=== PATIENT | male | born 1965 | race Asian ===

== ENCOUNTER 2019-07-07 16:41 | Emergency (ER) | payer BC ==
[~2019-07-07] VITALS: Ht 170.2 cm; Wt 77.1 kg
[2019-07-07 16:41] VITALS: BP_SYST 127
[2019-07-07] MEDS ORDERED: DIPH-TET-PERTUS Vaccine 0.5 ML VIAL (ADACEL) I.M. ONE (17:15)
[2019-07-07] MEDS ORDERED: LIDOCAINE/EPI 1% 1:100000 20 ML VIAL INJ ONE ×2 (17:15→17:16)
[2019-07-07] MEDS ORDERED: BACITRACIN 1 GM OINT TP ONE (18:58)
[2019-07-07 19:01] VITALS: BP_SYST 127
== END 2019-07-07 19:01 | disposition home or self-care (01) ==
LOC: SED 16:41
DX: S81.011A Laceration without foreign body, right knee, initial encounter (principal); W11.XXXA Fall on and from ladder, initial encounter; Y93.89 Activity, other specified; Y92.89 Other specified places as the place of occurrence of the external cause; Y99.8 Other external cause status
CPT/HCPCS: 90715; 99283

== ENCOUNTER 2019-07-09 12:21 | Emergency (ER) | payer BC ==
[~2019-07-09] VITALS: Ht 170.2 cm; Wt 81.6 kg
[2019-07-09 12:40] VITALS: BP_SYST 122
--- NOTE | 2019-07-09 12:40 | NUR ---
PLACED IN ROOM 7. WOUND TO RT LOWER LEG/SUTURES INTACT. INCISION WELL APPROXIMATED. DENIES FEVER CHILLS, RESP UNLABORED, SKIN WARM AND DRY LACERATION W/O SIGNS OF INFECTION, NO DRAINAGE/ODOR. SITE CLEAR AMBULATE WITH GUARDED GAIT
--- NOTE | 2019-07-09 12:55 | NUR ---
WOUND CARE, SITE CLEANED/PT TOLERATED WELL
--- NOTE | 2019-07-09 13:05 | NUR ---
ERMD IN TO ASSESS
[2019-07-09 13:29] VITALS: BP_SYST 122
--- NOTE | 2019-07-09 13:37 | NUR ---
Patient given written and verbal discharge instructions and verbalizes understanding. ER MD discussed with patient the results and treatment provided. Patient in stable condition. Patient educated on pain management and to follow up with PMD. Pain Scale 0/10 Opportunity for questions provided and answered. Medication side effect fact sheet provided.
== END 2019-07-09 13:29 | disposition home or self-care (01) ==
LOC: SED 12:21
DX: S51.811D Laceration without foreign body of right forearm, subsequent encounter (principal); Z48.00 Encounter for change or removal of nonsurgical wound dressing; W11.XXXD Fall on and from ladder, subsequent encounter
CPT/HCPCS: 99281

== ENCOUNTER 2019-07-23 12:05 | Emergency (ER) | payer BC ==
[~2019-07-23] VITALS: Ht 170.2 cm; Wt 81.6 kg
[2019-07-23 12:05] VITALS: BP_SYST 116
--- NOTE | 2019-07-23 12:10 | NUR ---
PATIENT TO ER #[id number]
--- NOTE | 2019-07-23 12:27 | NUR ---
PATIENT PRESENTS TO THE ER FOR SUTURE REMOVAL OF SUTURES PLACED TWO WEEKS AGO AFTER SUSTAINING LACERATIONS POST FALL FROM A LADDER ONTO GARDEN SHEERS; NO OTHER TRAUMA, NO LOC, NO OTHER REMARKABLE S/S
--- NOTE | 2019-07-23 13:02 | NUR ---
ER at bedside examining patient.
[2019-07-23 14:34] VITALS: BP_SYST 118
--- NOTE | 2019-07-23 14:36 | NUR ---
Patient given written and verbal discharge instructions and verbalizes understanding. ER MD discussed with patient the results and treatment provided. Patient in stable condition. ID arm band removed. Rx not given. Patient educated on pain management and to follow up with PMD. Pain Scale 0/10. Opportunity for questions provided and answered. Medication side effect fact sheet provided. Given dressing supplies to keep wound clean, dry, and intact. Instructed to continue to monitor for signs of infection.
== END 2019-07-23 14:34 | disposition home or self-care (01) ==
LOC: SED 12:05
DX: S91.011D Laceration without foreign body, right ankle, subsequent encounter (principal); X58.XXXD Exposure to other specified factors, subsequent encounter
CPT/HCPCS: 99281